=== PATIENT | male | born 2005 | race African-American/Black ===

== ENCOUNTER 2023-12-28 10:25 | Emergency (ER) | payer MEDICAID, SELFPAY ==
--- NOTE | ~2023-12-28 | XR_ITS ---
EXAMINATION: XR femur LT min 2V, XR femur RT min 2V DATE: 12/28/2023 11:03 INDICATION: Bilateral femoral pain TECHNIQUE: AP and lateral views of the left and right femurs were obtained on overlapping proximal an d distal images. COMPARISON: None. FINDINGS: Relatively symmetric appearance of chronic nonunited fractures of the femoral necks. The femoral head fragment are small and misshapen but remain normally centered at the bilateral shallow acetabula con sistent with chronic acetabular dysplasia. Both the femurs migrated significantly proximally with the greater trochanters line along side the anterior superior iliac spines. There is remodeling of the s ubtrochanteric femurs which lie along side the femoral head fragments suggesting these findings are c hronic. There is some bowing of the proximal left femoral diaphysis suggesting a prior old healed fra cture. No acute fracture. More distal aspect of the bilateral femurs appear normal with normal alignm ent and joint space at the bilateral knees. IMPRESSION: 1. 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 No acute osseous abnormality. Reviewed, dictated and finalized at location A. IMPRESSION: 1. 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 No acute osseous abnormality.
[2023-12-28 10:32] VITALS: BP 119/85; PULSE 60; RESP 19; TEMP 36.6; O2SAT 100
--- NOTE | 2023-12-28 10:34 | ED.DENTAL ---
HPI - Dental/Oral General Chief complaint: Dental/Oral Stated complaint: dental pain Time Seen by Provider: 12/28/23 10:30 Source: patient Mode of arrival: ambulatory Limitations: no limitations History of Present Illness HPI Narrative: Murray is a 18-year-old male patient presenting to the ER today with complaints of right upper dental pain and bilateral femur pain. He reports he does have a history osteogenesis imperfecta. States he has had pain off and on to bilateral femurs but the left femur is hurting worse today because he laid on it. Related Data Allergies Allergy/AdvReac Type Severity Reaction Status Date / Time No Known Allergies Allergy Verified 12/28/23 10:37 Review of Systems Review of Systems: Pertinent positives per HPI. Patient denies any fever, chills, rash, headache, visual changes, dizziness, cough, runny nose, sore throat, shortness of breath, chest pain, palpitations, nausea, vomiting, diarrhea, constipation, abdominal pain, or any urinary issues. PMFSH Comments At the time of my signature, I reviewed and agree with the nursing past medical, surgical, social, and family history. There is no relevant family history pertinent to the patient complaint. Exam Narrative: General: Well-developed, well nourished, in no apparent distress Head: Normocephalic, atraumatic Eyes: Pupils equally round and reactive to light bilaterally, EOM intact, sclera and conjunctive clear, no discharge, lids normal Ears: TMs intact and clear, ear canals clear, no drainage, grossly hearing normal. Nose: Nares patent, no discharge, no inflammation, no sinus tenderness. Mouth: Oropharynx without lesions or masses, poor dentition, MMM. Dental infection-decay to 1st molar of the right upper tooth Neck: Supple, trachea midline, no enlargement of anterior or posterior cervical nodes, no thyroid masses or goiter palpable. Cardio: Regular rate and rhythm, s1 and s2 normal, no murmur appreciated. Resp: Clear to auscultation bilaterally anteriorly and posteriorly, no rhonchi, rales, wheezing or rubs Musculoskeletal: No deformity, tender to palpation, grossly normal range of motion, muscle strength strong and equal, peripheral pulse strong, no edema, no cyanosis, normal gait and station Course Course Emergency Course: Portions of this record may have been created with voice recognition software. Vital Signs Vital signs: Vital Signs Temperature 36.6 C 12/28/23 10:32 Pulse Rate 60 12/28/23 10:32 Respiratory Rate 19 12/28/23 10:32 Blood Pressure 119/85 12/28/23 10:32 Pulse Oximetry 100 12/28/23 10:32 Oxygen Delivery Room Air 12/28/23 10:32 Temperature 36.6 C 12/28/23 10:32 Pulse Rate 60 12/28/23 10:32 Respiratory Rate 19 12/28/23 10:32 Blood Pressure 119/85 12/28/23 10:32 Pulse Oximetry 100 12/28/23 10:32 Oxygen Delivery Room Air 12/28/23 10:32 Vital signs reviewed MDM - Dental/Oral MDM Narrative Medical decision making narrative: At the time of visit patient is resting comfortably on the exam table. Patient appears to be nontoxic. Diagnostics: X-ray of bilateral femurs were negative for any acute fracture or malalignment. Medications given: Naproxen 500 mg p.o. Plan: I suspect patient has a dental infection and bilateral femur pain. Prescription for amoxicillin was sent to the pharmacy. Follow-up with dentist as soon as possible. supportive measures were discussed with the patient and they voiced understanding discharge instructions and agrees to treatment plan. Return precautions reviewed Differential Diagnosis Differential diagnosis: Likely gingival abscess, dental caries, toothache, dental abscess, fracture of tooth and other Discharge Plan Discharge Clinical Impression: Toothache, Pain in femur Patient Disposition: Home, Self-Care Condition: Stable Instructions: Antibiotic Form, Leg Pain (ED) Additional Instructions: X-rays do not hyun
[2023-12-28] MEDS: NAPROXEN 500 MG TABLET PO (12:44)
[2023-12-28 12:57] VITALS: BP 134/73; PULSE 60; RESP 18; TEMP 36.6; O2SAT 100
== END 2023-12-28 12:59 | disposition home or self-care (01) ==
PROVIDERS: Emergency Provider Nurse Practitioner Family
DX: K08.89 Other specified disorders of teeth and supporting structures (principal); M79.652 Pain in left thigh; M79.651 Pain in right thigh
CPT/HCPCS: 73552; 99284; A9270

== ENCOUNTER 2024-02-09 12:36 | Emergency (ER) | payer OTHER, MEDICAID, SELFPAY ==
--- NOTE | ~2024-02-09 | CT_ITS ---
EXAMINATION: CT soft tissue neck w con DATE: 02/09/2024 14:29 INDICATION: Right facial swelling. Upper dental pain. TECHNIQUE: Computed tomography (CT) of the neck was performed with 75 mL Omnipaque-350 intravenous co ntrast. Automated exposure control and iterative reconstruction technique were employed. The dose-nikko gth product was 501.25 mGy-cm. COMPARISON: None FINDINGS: There are no pathologically enlarged lymph nodes. There is mucosal thickening in the parana scar sinuses including complete opacification of right maxillary sinus and near complete opacification of left maxillary sinus. There is soft tissue swelling of the right face. Tooth 4 is broken. There a re periapical lucencies of teeth 3 and 4 that are contiguous with a 2.4 cm expansile lytic lesion ext ending into the maxillary sinus and with a breech of the buccal cortex of the alveolar process with 1 4 x 10 mm soft tissue abscess. There is kyphosis of cervical spine. IMPRESSION: 1. Dental disease involving tooth 4 and the roots of tooth 3 with breech of the buccal cortex of the alveolar process with 14 x 10 mm soft tissue abscess. Reviewed, dictated and finalized at location A.
[2024-02-09 13:06] VITALS: BP 132/70; PULSE 51; RESP 16; TEMP 36.6; O2SAT 100
--- NOTE | 2024-02-09 13:45 | ED.DENTAL ---
HPI - Dental/Oral General Chief complaint: Dental/Oral <LEILANI Lau Last Filed: 02/09/24 14:07> Stated complaint: dental pain <LEILANI Lau Last Filed: 02/09/24 14:07> Time Seen by Provider: 02/09/24 13:45 <LEILANI Lau Last Filed: 02/09/24 14:07> Focused HPI: Patient is a 18 y/o male who presents to the ED with c/o dental pain, facial swelling. Patient reports he fractured one of his R upper teeth, tooth #4 around 1 year ago. He has had increased pain in his R upper mouth for the last 2 weeks with swelling in his R facial cheek extending up towards his eye for the past 1 week. C/o pain with eating/drinking/chewing, temperature sensitivity. Denies difficulty breathing or swallowing. Denies fevers. Denies drainage. GENERAL: Mildly uncomfortable-appearing, well-nourished, and in no acute distress. HEAD: Normocephalic, atraumatic. ENT: Tooth #4 fractured down to gumline. Significant TTP along inner and particularly outer gumline surrounding tooth. Area if increased swelling along upper gumline R upper mouth with possible abscessed region. Swelling noted to R facial cheek and extending into maxillary region and up to lower eyelid. Mild difficulty opening mouth fully. No stridor. Eyes PERRL/EOMI, conjunctiva clear. CHEST: Clear to auscultation. ?No respiratory distress. HEART: Regular rate and rhythm.? NEURO: ?Alert and oriented x3. Patient screened in triage and initial orders placed.? ?Additional care and disposition to be based upon?diagnostic testing and treatment. <LEILANI Lau Last Filed: 02/09/24 14:07> Source: patient <LEILANI Lau Filed: 02/09/24 14:07> Mode of arrival: ambulatory <LEILANI Lau Last Filed: 02/09/24 14:07> Limitations: no limitations <LEILANI Lau Last Filed: 02/09/24 14:07> Related Data Allergies/adverse reactions: Allergies Allergy/AdvReac Type Severity Reaction Status Date / Time No Known Allergies Allergy Verified 02/09/24 12:37 <Nelsy Breaux PA-C - Last Filed: 02/09/24 14:07> Review of Systems Review of Systems: CONSTITUTIONAL: Denies fever ENT: Reports dentalgia <Flaquita Person PA-C - Last Filed: 02/09/24 17:44> All systems reviewed & are unremarkable except as noted in HPI and below <Flaquita Person PA-C - Last Filed: 02/09/24 17:44> PMFSH Past Medical History Medical History: Medical History (Updated 02/09/24 @ 17:38 by Flaquita Person PA-C) No active medical problems <Nelsy Breaux PA-C - Last Filed: 02/09/24 14:07> Social History Social History: Social History (Updated 02/09/24 @ 17:38 by Flaquita Person PA-C) Substance use: never <Nelsy Breaux PA-C - Last Filed: 02/09/24 14:07> Exam Narrative: GENERAL: Well-appearing, well-nourished, and in no acute distress. HEAD: Normocephalic, atraumatic. EYES: EOMI. ENT: Nares clear, no rhinorrhea or epistaxis. Mucous membranes moist. Oropharynx without tonsillar hypertrophy exudate or other lesions. No trismus. Area of fluctuant between teeth 3 and 4 NECK: Supple. No adenopathy or masses. CHEST: No respiratory distress. HEART: Regular rate EXTREMITIES: Normal range of motion. No edema. SKIN: Warm, dry, no rash. NEURO: No focal deficits. Alert and oriented x3. PSYCH: Normal mood and affect <Flaquita Person PA-C - Last Filed: 02/09/24 17:44> Course Course Emergency Course: Patient updated on workup and agrees with plan of care <Flaquita Person PA-C - Last Filed: 02/09/24 17:44> Vital Signs Vital signs: Vital Signs Temperature 97.9 F 02/09/24 13:06 Pulse Rate 51 L 02/09/24 13:06 Respiratory Rate 16 02/09/24 13:06 Blood Pressure 132/70 02/09/24 13:06 Pulse Oximetry 100 02/09/24 13:06 Oxygen Delivery Room Air 02/09/24 13:06 Temperature 97.9 F 02/09/24 13:06 Pulse Rate 6
[2024-02-09] MEDS: AMOXICILLIN/CLAVULANATE K 875-125 MG TAB 1 TABLET PO (14:15)
[2024-02-09 14:21] LABS: Basophils Absolute Auto 0.1 K/mm3 (0.0-0.1); Basophils Percent Auto 0.8 % (0.2-1.2); Eosinophils Absolute Auto 0.1 K/mm3 (0-0.3); Eosinophils Percent Auto 2.3 % (0-4.4); Hematocrit 41.6 % (42.0-52.0); Hemoglobin 13.7 g/dL (14.0-18.0); Immature Granulocyte Absolute 0.02 K/mm3 (0.00-0.031); Immature Granulocyte Percent A 0.3 % (0-0.5); Lymphocytes Absolute Auto 1.79 K/mm3 (0.9-3.2); Lymphocytes Percent Auto 29.3 % (18.3-44.2); Mean Corpuscular HGB Conc 32.9 g/dl (32-36); Mean Corpuscular Hemoglobin 32.1 pg (26-34); Mean Corpuscular Volume 97.4 fl (80-100); Mean Platelet Volume 9.6 fl (7.4-10.4); Monocytes Absolute Auto 0.6 K/mm3 (0.1-0.6); Monocytes Percent Auto 10.5 % (2.6-8.5); Neutrophils Absolute Auto 3.5 K/mm3 (1.3-6.7); Neutrophils Percent Auto 56.8 % (45.5-73.1); Platelet Count Result 264 k/mm3 (150-375); Red Blood Count 4.27 M/mm3 (4.6-6.20); Red Cell Distribution Width 11.7 % (11.5-14.5); White Blood Count 6.1 K/mm3 (4.5-10.0)
[2024-02-09 14:32] LABS: Anion Gap 5 mmol/L (4-12); Blood Urea Nitrogen 12 mg/dL (9-20); Calcium 10.1 mg/dL (8.4-10.2); Carbon Dioxide 29 mmol/L (22-30); Chloride 103 mmol/L (98-107); Estimated CRCL calculation 84 ml/min; Estimated Glomerular Filt Rate > 60; Glucose 94 mg/dL (65-110); Potassium 3.9 mmol/L (3.4-5.0); Sodium 137 mmol/L (137-145)
[2024-02-09 17:34] VITALS: BP 129/82; PULSE 60; RESP 15; O2SAT 99
== END 2024-02-09 17:44 | disposition home or self-care (01) ==
PROVIDERS: Physician Assistant; Emergency Provider Physician Assistant
DX: K04.7 Periapical abscess without sinus (principal)
CPT/HCPCS: 36415; 41800; 70491; 80048; 85025; 87070; 87205; 99284; A9270; Q9967